=== PATIENT | male | born 1950 | race Caucasian/White ===

== ENCOUNTER 2016-05-29 06:41 | Day surgery (SDC) | payer BC ==
[~2016-05-29] VITALS: Ht 180.3 cm; Wt 88.4 kg
[~2016-05-29 06:41] MED LIST: CARTIA XT240 MG PO; CIALIS5 MG PO; COZAAR 50MG50 MG/TAB PO; MOBIC15 MG PO; NO HOME MEDICATIONS; NORCO 325 MG-51 TAB PO; PROTONIX 40MG T40 MG PO; VALIUM 5MG T5 MG/TAB PO
[2016-05-29 07:07] VITALS: BP 165/89; PULSE 65; TEMP 97.6
[2016-05-29] MEDS ORDERED: OMEGA-3 1000 MG1 CAP PO (07:15)
[2016-05-29] MEDS ORDERED: NEURONTIN300 MG/CAP PO (07:15)
[2016-05-29] MEDS ORDERED: SYNTHROID0.1 MG/TAB PO (07:16)
[2016-05-29] MEDS ORDERED: CLARITIN D TAB1 TAB PO (07:17)
[2016-05-29] MEDS ORDERED: ATROVENT I0.2 MG/1 M IH (07:17)
[2016-05-29] MEDS ORDERED: COZAAR 50MG50 MG/TAB PO (07:18)
[2016-05-29] MEDS ORDERED: [UNRECOGNIZED DRUG - REMARK] PO (07:20)
[2016-05-29 08:30] VITALS: BP 139/89; PULSE 64
[2016-05-29 08:45] VITALS: BP 134/88; PULSE 74
[2016-05-29 09:00] VITALS: BP 140/91; PULSE 77
== END 2016-05-29 09:10 | disposition home or self-care (01) ==
LOC: SDCO 06:41
DX: Z80.0 Family history of malignant neoplasm of digestive organs (principal); D12.3 Benign neoplasm of transverse colon; K64.0 First degree hemorrhoids; K21.0 Gastro-esophageal reflux disease with esophagitis; K31.84 Gastroparesis; K21.9 Gastro-esophageal reflux disease without esophagitis
CPT/HCPCS: OP; J2250; J2405; J3010; J7030

== ENCOUNTER → 2016-06-10 | Outpatient (CLI) | payer BC ==
[~2016-06-10] MED LIST changes: +ATROVENT I0.2 MG/1 M IH; +CLARITIN D TAB1 TAB PO; +NEURONTIN300 MG/CAP PO; +OMEGA-3 1000 MG1 CAP PO; +SYNTHROID0.1 MG/TAB PO; +[UNRECOGNIZED DRUG - REMARK] PO
== END ==
LOC: COL.RAD 08:28
DX: R14.0 Abdominal distension (gaseous) (principal); K21.9 Gastro-esophageal reflux disease without esophagitis
CPT/HCPCS: A9541

== ENCOUNTER → 2016-07-02 | Outpatient (CLI) | payer BC | LOC: COL.RAD 09:41 | DX: N28.89 Other specified disorders of kidney and ureter (principal); N28.1 Cyst of kidney, acquired ==

== ENCOUNTER 2017-01-31 17:23 | Emergency (ER) | payer MEDICARE, OTHER ==
[~2017-01-31] VITALS: Ht 180.3 cm; Wt 86.4 kg
[2017-01-31 17:26] VITALS: BP 130/80; TEMP 98.5
[2017-01-31 18:45] LABS: BASO % 0.3 % (0.0-2.0); EOS # 0.1 (0.0-0.7); EOS % 1.7 % (0-4.0); GRAN # 3.2 (1.4-6.5); GRAN % 56.3 % (42.2-75.2); HEMATOCRIT 45.5 % (42.0-52.0); HEMOGLOBIN 14.5 g/dl (13.5-18.0); LYMPH # 1.8 (1.2-3.4); LYMPH % 30.9 % (20.0-51.0); MEAN CELL VOLUME 88 fl (80.0-100.0); MEAN CORPUSCULAR HEMOGLOBIN 28 pg (27.0-31.0); MEAN CORPUSCULAR HGB CONC 32 g/dl (33.0-37.0); MEAN PLATELET VOLUME 9.6 fl (7.4-10.4); MONO # 0.6 (0.1-0.6); MONO % 10.6 % (1.7-9.3); PLATELET COUNT 222 K/mm3 (130-400); RED BLOOD COUNT 5.19 M/mm3 (4.20-5.60); WHITE BLOOD COUNT 5.8 K/mm3 (4.8-10.8)
[2017-01-31 18:48] LABS: ADJUSTED CALCIUM 9.3 mg/dL (8.4-10.2); ALBUMIN 4.4 gm/dL (3.5-5.0); BILIRUBIN,TOTAL 0.4 mg/dL (0.0-1.0); CALCIUM 9.6 mg/dL (8.4-10.2); CREATININE, serum 1.27 mg/dL (0.66-1.25); POTASSIUM 3.7 mmol/L (3.4-5.0); TOTAL PROTEIN 7.1 gm/dL (6.4-8.2)
[2017-01-31 19:06] LABS: COLLECTION METHOD CLEAN CATCH
[2017-01-31 19:22] LABS: MUCOUS Present /lpf; PH 5 (5-8); SQUAMOUS EPITHELIAL 0-2 /hpf; URINE APPEARANCE Clear; URINE BACTERIA None Seen /hpf; URINE BILIRUBIN Negative (NEGATIVE); URINE BLOOD Negative (NEGATIVE); URINE COLOR Amber; URINE GLUCOSE Negative (NEGATIVE); URINE KETONE Trace (NEGATIVE); URINE LEUKOCYTE ESTERASE Trace (NEGATIVE); URINE PROTEIN(semi-quant) Negative (NEGATIVE); URINE UROBILINOGEN Negative (NEGATIVE)
[2017-01-31 19:44] VITALS: PULSE 85
== END 2017-01-31 19:45 | disposition home or self-care (01) ==
LOC: COL.ER 17:23
PROVIDERS: Emergency Medicine
DX: N28.9 Disorder of kidney and ureter, unspecified (principal); R60.0 Localized edema; I10 Essential (primary) hypertension

== ENCOUNTER → 2017-01-31 | Outpatient (CLI) | payer MEDICARE | LOC: ZCOL.LAB 16:33 | DX: M79.89 Other specified soft tissue disorders (principal) ==

== ENCOUNTER → 2017-02-07 | Outpatient (CLI) | payer MEDICARE, OTHER | LOC: COL.RAD 10:35 | DX: H53.8 Other visual disturbances (principal); R51 Headache | CPT/HCPCS: J7050; Q9967 ==

== ENCOUNTER 2017-07-01 18:41 | Emergency (ER) | payer MEDICARE, OTHER ==
[~2017-07-01] VITALS: Ht 180.3 cm; Wt 84.1 kg
[2017-07-01 18:42] VITALS: BP 158/99; TEMP 97.8
[2017-07-01 19:03] VITALS: PULSE 78
== END 2017-07-01 19:22 | disposition home or self-care (01) ==
LOC: COL.ER 18:41
DX: T17.228A Food in pharynx causing other injury, initial encounter (principal); I10 Essential (primary) hypertension

== ENCOUNTER 2017-07-08 08:45 | Outpatient (RCR) | payer MEDICARE, OTHER ==
[~2017-07-08 08:45] MED LIST changes: -OMEGA-3 1000 MG1 CAP PO; +OMEGA-3 FISH1000 MG PO
[2017-08-05] MEDS ORDERED: FML 5 ML5 ML OP (07:29)
[2017-08-05] MEDS ORDERED: SIMPONIARIA IV (07:30)
[2017-08-05] MEDS ORDERED: ATROVENT NASAL15 ML NS (07:31)
[2017-08-05] MEDS ORDERED: CLARITIN 1010 MG/TAB PO (07:32)
[2017-08-05] MEDS ORDERED: MELATONIN1 MG PO (07:33)
[2017-08-05] MEDS ORDERED: MOBIC 7.5MG7.5 MG PO (07:33)
[2017-08-05] MEDS ORDERED: PATANOL OPHTHALM5 ML OU (07:34)
[2017-08-05] MEDS ORDERED: CIALIS5 MG PO (07:36)
[2017-08-05] MEDS ORDERED: ARMOUR THYROID30 MG PO (07:37)
[2017-08-05] MEDS ORDERED: EYE DROP ORIGIN15 ML OP (07:37)
[2017-08-05] MEDS ORDERED: AMBIEN 5MG TABLE5 MG PO (07:38)
[2017-08-05] MEDS ORDERED: NORCO 325 MG-51 TAB PO (10:18)
[2017-08-05] MEDS ORDERED: MOTRIN 600600 MG/TAB PO (10:18)
== END 2017-08-26 | disposition home or self-care (01) ==
LOC: WSC
DX: S46.211D Strain of muscle, fascia and tendon of other parts of biceps, right arm, subsequent encounter (principal); X50.0XXD Overexertion from strenuous movement or load, subsequent encounter; Y93.53 Activity, golf; Y92.838 Other recreation area as the place of occurrence of the external cause; Y99.8 Other external cause status
CPT/HCPCS: G8978-GP; G8979-GP

== ENCOUNTER 2017-08-05 06:54 | Day surgery (SDC) | payer MEDICARE, OTHER ==
[~2017-08-05] VITALS: Ht 180.3 cm; Wt 79.5 kg
[2017-08-05 07:17] VITALS: BP 121/91; PULSE 78; TEMP 97.6
[2017-08-05] MEDS ORDERED: FML 5 ML5 ML OP (07:29)
[2017-08-05] MEDS ORDERED: SIMPONIARIA IV (07:30)
[2017-08-05] MEDS ORDERED: ATROVENT NASAL15 ML NS (07:31)
[2017-08-05] MEDS ORDERED: CLARITIN 1010 MG/TAB PO (07:32)
[2017-08-05] MEDS ORDERED: MOBIC 7.5MG7.5 MG PO (07:33)
[2017-08-05] MEDS ORDERED: MELATONIN1 MG PO (07:33)
[2017-08-05] MEDS ORDERED: PATANOL OPHTHALM5 ML OU (07:34)
[2017-08-05] MEDS ORDERED: CIALIS5 MG PO (07:36)
[2017-08-05] MEDS ORDERED: EYE DROP ORIGIN15 ML OP (07:37)
[2017-08-05] MEDS ORDERED: ARMOUR THYROID30 MG PO (07:37)
[2017-08-05] MEDS ORDERED: AMBIEN 5MG TABLE5 MG PO (07:38)
[2017-08-05 10:15] VITALS: BP 135/84; PULSE 71; TEMP 97.2
[2017-08-05] MEDS ORDERED: MOTRIN 600600 MG/TAB PO (10:18)
[2017-08-05] MEDS ORDERED: NORCO 325 MG-51 TAB PO (10:18)
[2017-08-05 10:30] VITALS: BP 121/91; PULSE 70; TEMP 97.6
[2017-08-05 10:45] VITALS: BP 116/59; PULSE 69
[2017-08-05 11:00] VITALS: BP 118/63; PULSE 67
== END 2017-08-05 11:25 | disposition home or self-care (01) ==
LOC: SDCO 06:54
DX: R51 Headache (principal); K21.9 Gastro-esophageal reflux disease without esophagitis; G47.33 Obstructive sleep apnea (adult) (pediatric); E03.9 Hypothyroidism, unspecified; F41.9 Anxiety disorder, unspecified; M19.90 Unspecified osteoarthritis, unspecified site; G25.81 Restless legs syndrome; J31.0 Chronic rhinitis; J45.909 Unspecified asthma, uncomplicated; Z88.8 Allergy status to other drugs, medicaments and biological substances; Z90.49 Acquired absence of other specified parts of digestive tract; Z90.5 Acquired absence of kidney; Z85.068 Personal history of other malignant neoplasm of small intestine; Z80.42 Family history of malignant neoplasm of prostate
CPT/HCPCS: J0690; J2704; J3010; J7120

== ENCOUNTER → 2017-09-05 | Outpatient (CLI) | payer MEDICARE, OTHER ==
[~2017-09-05] MED LIST changes: +AMBIEN 5MG TABLE5 MG PO; +ARMOUR THYROID30 MG PO; +ATROVENT NASAL15 ML NS; +CLARITIN 1010 MG/TAB PO; +EYE DROP ORIGIN15 ML OP; +FML 5 ML5 ML OP; +MELATONIN1 MG PO; +MOBIC 7.5MG7.5 MG PO; +MOTRIN 600600 MG/TAB PO; +PATANOL OPHTHALM5 ML OU; +SIMPONIARIA IV
== END ==
LOC: COL.RAD 11:53
DX: R10.31 Right lower quadrant pain (principal); G89.29 Other chronic pain

== ENCOUNTER 2017-12-30 07:08 | Day surgery (SDC) | payer MEDICARE, OTHER ==
[2017-12-30] VITALS (7 sets, daily range): BP systolic 107–125; BP diastolic 54–71; PULSE 55–72; TEMP 97–97.4
[~2017-12-30] VITALS: Ht 180.3 cm; Wt 85.0 kg
[~2017-12-30 07:08] MED LIST changes: +AMBIEN 10MG10 MG PO; -AMBIEN 5MG TABLE5 MG PO; -FML 5 ML5 ML OP; +FML 5 ML5 ML OU
[2017-12-30] MEDS ORDERED: SYNTHROID0.125 MG/T PO (07:48)
[2017-12-30] MEDS ORDERED: MOTRIN 600600 MG/TAB PO (11:59)
[2017-12-30] MEDS ORDERED: COLACE 100100 MG/CAP PO (11:59)
[2017-12-30] MEDS ORDERED: PERCOCET 325 MG1 TA2 PO (11:59)
== END 2017-12-30 14:55 | disposition home or self-care (01) ==
LOC: SDCO 07:08
DX: K40.90 Unilateral inguinal hernia, without obstruction or gangrene, not specified as recurrent (principal); Z79.899 Other long term (current) drug therapy; I10 Essential (primary) hypertension; G47.33 Obstructive sleep apnea (adult) (pediatric); E03.9 Hypothyroidism, unspecified; K21.9 Gastro-esophageal reflux disease without esophagitis; G25.81 Restless legs syndrome; R51 Headache; F41.9 Anxiety disorder, unspecified; Z85.068 Personal history of other malignant neoplasm of small intestine; Z80.42 Family history of malignant neoplasm of prostate; Z80.0 Family history of malignant neoplasm of digestive organs
CPT/HCPCS: A4314; C1781; J0690; J1100; J1170; J1885; J2405; J2704; J3010; J7120